=== PATIENT | female | born 1985 | race Caucasian/White ===

== ENCOUNTER 2018-01-20 13:59 | Inpatient (IN) | payer SELFPAY ==
[~2018-01-20] VITALS: Ht 160 cm; Wt 59.2 kg
[2018-01-20] MEDS ORDERED: DEXT 5%/LR + PITOCIN 20UNITS/L 1,000 ML IV SCH ×2 (15:35→15:42)
[2018-01-20] MEDS ORDERED: IBUPROFEN 400MG TABLET PO PRN (15:45)
[2018-01-20] MEDS ORDERED: RHO(D) IMMUNE GLOBULIN 300 MCG/SYR IM PRN (15:45)
[2018-01-20] MEDS: IBUPROFEN 800MG TABLET PO PRN ×2 (16:00→22:02)
[2018-01-20 16:55] LABS: CLARITY URINE CLEAR (CLEAR); COLOR URINE YELLOW (YELLOW); KETONES URINE NEGATIVE (NEGATIVE); LEUKOCYTE ESTERASE URINE NEGATIVE (NEGATIVE); NITRITE URINE NEGATIVE (NEGATIVE); OCCULT BLOOD URINE TRACE (NEGATIVE); PROTEIN URINE NEGATIVE (NEGATIVE); SPECIFIC GRAVITY URINE 1.021 (1.005-1.030)
[2018-01-20 16:59] LABS: PARTIAL THROMBOPLASTIN TIME 28.4 sec (23.4-31.0); PROTHROMBIN TIME 10.1 sec (9.4-11.6)
[2018-01-20 17:00] VITALS: BP 109/65
[2018-01-20 17:05] LABS: HEMATOCRIT. 24.4 % (36.0-48.0); HEMOGLOBIN. 7.7 g/dL (12.0-16.0); MEAN CORPUSCULAR HEMOGLOBIN 25.3 pg (28.0-32.0); MEAN CORPUSCULAR VOLUME 80.4 fL (81.0-99.0); MEAN PLATELET VOLUME 7.9 fl (7.4-10.4); PLATELET 206 x1000/uL (130-400); RED BLOOD CELL COUNT 3.03 mill/uL (4.2-5.4)
[2018-01-20 17:07] LABS: *BARBITURATES SCREEN URINE NEGATIVE (NEGATIVE); *BENZODIAZEPINES SCREEN URINE NEGATIVE (NEGATIVE); *COCAINE SCREEN URINE NEGATIVE (NEGATIVE); CANNABINOID URINE SCREEN NEGATIVE (NEGATIVE); METHADONE URINE SCREEN NEGATIVE (NEGATIVE); OPIATES URINE SCREEN NEGATIVE (NEGATIVE); PHENCYCLIDINE URINE SCREEN NEGATIVE (NEGATIVE)
[2018-01-20 17:12] LABS: *AMPHETAMINES SCREEN URINE PRESUMTIVE POSITIVE (NEGATIVE)
[2018-01-20 17:27] LABS: HEPATITIS B SURFACE ANTIGEN NEGATIVE; RUBELLA IGG 25.5 IU/mL (4.99-10)
[2018-01-20 17:30] VITALS: BP 105/46
[2018-01-20 18:21] LABS: NUCLEATED RED BLOOD CELLS 1 /100 WBC; PLATELET ESTIMATE NORMAL
[2018-01-20 22:00] VITALS: BP 95/50
[2018-01-21 05:40] VITALS: BP 114/65
[2018-01-21 07:14] LABS: BASOPHILS % 0.3 % (0.0-2.0); EOSINOPHILS % 0.9 % (0.0-5.0); HEMATOCRIT. 21.1 % (36.0-48.0); LYMPHOCYTES % 18.6 % (20.0-50.0); MEAN CORPUSCULAR VOLUME 79.8 fL (81.0-99.0); MEAN PLATELET VOLUME 8.1 fl (7.4-10.4); NEUTROPHILS % 72.2 % (40.0-76.0); PLATELET 191 x1000/uL (130-400); RED BLOOD CELL COUNT 2.65 mill/uL (4.2-5.4); RED CELL DISTRIBUTION WIDTH 17.3 % (11.6-14.6)
[2018-01-21 07:30] VITALS: BP 121/78
[2018-01-21 07:48] LABS: HEMOGLOBIN. 6.6 g/dL (12.0-16.0)
[2018-01-21] MEDS: IBUPROFEN 800MG TABLET PO PRN ×2 (08:19→19:36)
[2018-01-21 17:29] VITALS: BP 115/64
[2018-01-21 21:45] VITALS: BP 120/75
[2018-01-22 05:50] VITALS: BP 100/54
[2018-01-22 08:59] VITALS: BP 118/84
[2018-01-22] MEDS ORDERED: TETANUS, DIPHTHERIA, PERTUSSIS VAC/PF 0.5ML (>7YR OLD) IM ONE (10:00)
[2018-01-22] MEDS: IBUPROFEN 800MG TABLET PO PRN (10:58)
[2018-01-22 15:45] VITALS: BP 123/79
== END 2018-01-22 17:33 | disposition home or self-care (01) | DRG 560 ==
LOC: ER 14:07 → L&D 14:10 → 7EST PP/OB 17:39
PROVIDERS: ADMIT Obstetrics & Gynecology; ATTEND Obstetrics & Gynecology
PROC: 10E0XZZ Delivery of Products of Conception, External Approach (ICD-10-PCS; principal; 2018-01-20 14:25)
DX: O99.02 Anemia complicating childbirth (principal); D62 Acute posthemorrhagic anemia; O77.0 Labor and delivery complicated by meconium in amniotic fluid; F99 Mental disorder, not otherwise specified; O99.344 Other mental disorders complicating childbirth; Z3A.38 38 weeks gestation of pregnancy; Z37.0 Single live birth
CPT/HCPCS: 36415; 80305; 80307; 81003; 85025; 85610; 85730; 86592; 86703; 86762; 86850; 86900; 87340; 90715; 96374; 96376; 99285; J2590

== ENCOUNTER 2022-02-06 23:16 | Emergency (ER) | payer MEDICAID ==
[~2022-02-06] VITALS: Ht 162.6 cm; Wt 70.0 kg
[2022-02-07] MEDS ORDERED: LORAZEPAM 0.5MG TABLET PO ONE ×3 (00:30→15:45)
[2022-02-07 01:27] LABS: CHLORIDE 106 mEq/L (98-107)
[2022-02-07 01:29] LABS: BASOPHILS % 0.6 % (0.0-2.0); EOSINOPHILS % 0.1 % (0.0-5.0); HCG SCREEN NEGATIVE; HEMATOCRIT. 41.8 % (36.0-48.0); HEMOGLOBIN. 13.7 g/dL (12.0-16.0); LYMPHOCYTES % 17.5 % (20.0-50.0); MEAN CORPUSCULAR HEMOGLOBIN 28.9 pg (28.0-32.0); MEAN CORPUSCULAR VOLUME 88.3 fL (81.0-99.0); MEAN PLATELET VOLUME 6.9 fl (7.4-10.4); MONOCYTES % 7.2 % (2.0-8.0); NEUTROPHILS % 74.6 % (40.0-76.0); PLATELET 325 x1000/uL (130-400); RED BLOOD CELL COUNT 4.73 mill/uL (4.2-5.4)
[2022-02-07 01:35] LABS: ETHANOL BLOOD < 10 mg/dL
[2022-02-07 05:54] LABS: CLARITY URINE CLEAR (CLEAR); COLOR URINE YELLOW (YELLOW); KETONES URINE TRACE (NEGATIVE); LEUKOCYTE ESTERASE URINE NEGATIVE (NEGATIVE); NITRITE URINE NEGATIVE (NEGATIVE); OCCULT BLOOD URINE NEGATIVE (NEGATIVE); PH URINE 5.5 (4.5-8.0); PROTEIN URINE TRACE (NEGATIVE); SPECIFIC GRAVITY URINE 1.028 (1.005-1.030)
[2022-02-07 06:10] LABS: *AMPHETAMINES SCREEN URINE NEGATIVE (NEGATIVE); *BARBITURATES SCREEN URINE NEGATIVE (NEGATIVE); *BENZODIAZEPINES SCREEN URINE NEGATIVE (NEGATIVE); *COCAINE SCREEN URINE NEGATIVE (NEGATIVE); CANNABINOID URINE SCREEN NEGATIVE (NEGATIVE); METHADONE URINE SCREEN NEGATIVE (NEGATIVE); OPIATES URINE SCREEN NEGATIVE (NEGATIVE); PHENCYCLIDINE URINE SCREEN NEGATIVE (NEGATIVE)
[2022-02-07] MEDS ORDERED: NICOTINE 14MG PATCH TD NR (16:00)
[2022-02-07] MEDS: BUSPIRONE HCL 10MG TABLET PO SCH (21:35)
[2022-02-07] MEDS: RISPERIDONE 1MG TABLET PO SCH (21:36)
[2022-02-07] MEDS ORDERED: LORAZEPAM 1MG TABLET PO ONE (22:30)
[2022-02-07] MEDS ORDERED: METFORMIN HCL 500MG TABLET PO STA (23:10)
[2022-02-08] MEDS ORDERED: METFORMIN HCL 500MG TABLET PO SCH (09:00)
[2022-02-08] MEDS: RISPERIDONE 1MG TABLET PO SCH (09:00)
[2022-02-08] MEDS: BUSPIRONE HCL 10MG TABLET PO SCH (10:38)
[2022-02-08 13:49] VITALS: BP 120/72
== END 2022-02-08 14:50 | disposition home or self-care (01) ==
LOC: ER 23:16
DX: F32.9 Major depressive disorder, single episode, unspecified (principal); F23 Brief psychotic disorder; Z20.822 Contact with and (suspected) exposure to COVID-19
CPT/HCPCS: 80053; 80305; 80307; 80320; 80329; 81001; 84703; 85025; 99285; C9803; U0003; U0005; G0480

== ENCOUNTER 2022-02-21 18:39 | Emergency (ER) | payer MEDICAID ==
[~2022-02-21] VITALS: Ht 160 cm; Wt 90.0 kg
[2022-02-21 20:37] LABS: BASOPHILS % 0.5 % (0.0-2.0); EOSINOPHILS % 0.2 % (0.0-5.0); HEMATOCRIT. 41.8 % (36.0-48.0); HEMOGLOBIN. 13.8 g/dL (12.0-16.0); LYMPHOCYTES % 21.5 % (20.0-50.0); MEAN CORPUSCULAR HEMOGLOBIN 29.1 pg (28.0-32.0); MEAN CORPUSCULAR VOLUME 87.9 fL (81.0-99.0); MONOCYTES % 8.1 % (2.0-8.0); NEUTROPHILS % 69.7 % (40.0-76.0); PLATELET 236 x1000/uL (130-400); RED BLOOD CELL COUNT 4.75 mill/uL (4.2-5.4); RED CELL DISTRIBUTION WIDTH 13.3 % (11.6-14.6)
[2022-02-21 20:56] LABS: CHLORIDE 107 mEq/L (98-107)
[2022-02-21 21:02] LABS: HCG SCREEN NEGATIVE
[2022-02-21 21:13] LABS: ETHANOL BLOOD < 10 mg/dL
[2022-02-21 21:46] LABS: CLARITY URINE CLEAR (CLEAR); COLOR URINE YELLOW (YELLOW); KETONES URINE TRACE (NEGATIVE); LEUKOCYTE ESTERASE URINE NEGATIVE (NEGATIVE); NITRITE URINE NEGATIVE (NEGATIVE); OCCULT BLOOD URINE NEGATIVE (NEGATIVE); PROTEIN URINE NEGATIVE (NEGATIVE); SPECIFIC GRAVITY URINE 1.025 (1.005-1.030)
[2022-02-21] MEDS ORDERED: SODIUM CHLORIDE 0.9% 1,000 ML IV ONE (22:15)
[2022-02-21] MEDS ORDERED: DIPHENHYDRAMINE 50MG CAPSULE PO ONE (22:15)
[2022-02-21 22:50] LABS: *AMPHETAMINES SCREEN URINE NEGATIVE (NEGATIVE); *BARBITURATES SCREEN URINE NEGATIVE (NEGATIVE); *BENZODIAZEPINES SCREEN URINE NEGATIVE (NEGATIVE); *COCAINE SCREEN URINE NEGATIVE (NEGATIVE); CANNABINOID URINE SCREEN NEGATIVE (NEGATIVE); METHADONE URINE SCREEN NEGATIVE (NEGATIVE); OPIATES URINE SCREEN NEGATIVE (NEGATIVE); PHENCYCLIDINE URINE SCREEN NEGATIVE (NEGATIVE)
[2022-02-22] VITALS: BP 118/80
== END 2022-02-22 00:04 | disposition home or self-care (01) ==
LOC: ER 18:39
DX: R06.02 Shortness of breath (principal); F32.9 Major depressive disorder, single episode, unspecified; E11.9 Type 2 diabetes mellitus without complications; F20.9 Schizophrenia, unspecified; E03.9 Hypothyroidism, unspecified
CPT/HCPCS: 36415; 71045; 80053; 80305; 80307; 80320; 80329; 81003; 81025; 82962; 83605; 83880; 84443; 84484; 84703; 85025; 93005; 99285; J7030; Q0163; G0480

== ENCOUNTER 2022-02-25 20:06 | Emergency (ER) | payer MEDICAID ==
[~2022-02-25] VITALS: Ht 160 cm; Wt 86.0 kg
[2022-02-25 20:35] VITALS: BP 138/79
[2022-02-25] MEDS ORDERED: IBUPROFEN 600MG TABLET PO ONE (23:00)
[2022-02-25] MEDS ORDERED: DIPH25CA83 MT ×3 (23:42→23:44)
[2022-02-25] MEDS ORDERED: DIPHENHYDRAMINE 25MG CAPSULE PO ONE (23:45)
== END 2022-02-25 23:56 | disposition home or self-care (01) ==
LOC: ER 20:06
DX: M54.50 Low back pain, unspecified (principal); G89.29 Other chronic pain; G47.00 Insomnia, unspecified; F32.9 Major depressive disorder, single episode, unspecified; E11.9 Type 2 diabetes mellitus without complications; F20.9 Schizophrenia, unspecified
CPT/HCPCS: 81025; 99282; Q0163

== ENCOUNTER 2023-01-29 16:31 | Emergency (ER) | payer MEDICAID ==
[~2023-01-29] VITALS: Ht 162.6 cm; Wt 80.0 kg
[~2023-01-29 16:31] MED LIST: DIPH25CA83 MT
[2023-01-29 16:49] VITALS: TEMP 98.9; O2SAT 100
[2023-01-29 22:45] VITALS: BP 155/112; PULSE 121; RESP 18
[2023-01-29] MEDS ORDERED: IBUPROFEN 400MG TABLET PO ONE (22:45)
[2023-01-29 22:59] LABS: BASOPHILS % 0.7 % (0.0-2.0); EOSINOPHILS % 0.6 % (0.0-5.0); HEMATOCRIT. 41.6 % (36.0-48.0); HEMOGLOBIN. 14.2 g/dL (12.0-16.0); LYMPHOCYTES % 28.9 % (20.0-50.0); MEAN CORPUSCULAR HEMOGLOBIN 30.1 pg (28.0-32.0); MEAN CORPUSCULAR HGB CONC 34.1 g/dL (31.0-37.0); MEAN CORPUSCULAR VOLUME 88.3 fL (81.0-99.0); MEAN PLATELET VOLUME 7.6 fl (7.4-10.4); MONOCYTES % 8.7 % (2.0-8.0); NEUTROPHILS % 61.1 % (40.0-76.0); PLATELET 263 x1000/uL (130-400); RED BLOOD CELL COUNT 4.71 mill/uL (4.2-5.4); RED CELL DISTRIBUTION WIDTH 13.9 % (11.6-14.6); WHITE BLOOD COUNT 8.3 x1000/uL (4.5-11.0)
[2023-01-29 23:08] LABS: CHLORIDE 110 mEq/L (98-107); INDEX HEMOLYSI 1 (1-3); INDEX ICTERIC 1 (1-4); INDEX LIPEMIC 1 (1-3); POTASSIUM 3.5 mEq/L (3.5-5.1); SODIUM 141 mEq/L (136-145)
[2023-01-29 23:15] LABS: ALANINE AMINOTRANSFERASE 19 IU/L (13-61); ALBUMIN 3.7 g/dL (3.4-5.0); ASPARTATE AMINOTRANSFERASE 11 IU/L (15-37); BILIRUBIN TOTAL 0.1 mg/dL (0.1-1.0); CALCIUM 9.5 mg/dL (8.5-10.1); CARBON DIOXIDE 24 mEq/L (21-32); CREATININE 0.8 mg/dL (0.6-1.3); ETHANOL BLOOD < 10 mg/dL (-10); GLUCOSE 116 mg/dL (70-105); PROTEIN TOTAL 8.2 g/dL (6.0-8.3); UREA NITROGEN BLOOD 6 mg/dL (7-21)
[2023-01-30 00:49] LABS: *AMPHETAMINES SCREEN URINE NEGATIVE (NEGATIVE); *BARBITURATES SCREEN URINE NEGATIVE (NEGATIVE); *BENZODIAZEPINES SCREEN URINE NEGATIVE (NEGATIVE); *COCAINE SCREEN URINE NEGATIVE (NEGATIVE); CANNABINOID URINE SCREEN NEGATIVE (NEGATIVE); ECSTASY MDMA SCREEN URINE NEGATIVE (NEGATIVE); METHADONE URINE SCREEN NEGATIVE (NEGATIVE); OPIATES URINE SCREEN NEGATIVE (NEGATIVE); PHENCYCLIDINE URINE SCREEN NEGATIVE (NEGATIVE)
== END 2023-01-30 02:40 | disposition home or self-care (01) ==
LOC: ER 16:31
DX: R56.9 Unspecified convulsions (principal); R51.9 Headache, unspecified; F41.9 Anxiety disorder, unspecified; F32.9 Major depressive disorder, single episode, unspecified; F20.9 Schizophrenia, unspecified
CPT/HCPCS: 36415; 80053; 80305; 80320; 85025; 93005; 99284; G0480

== ENCOUNTER 2024-03-17 18:01 | Emergency (ER) | payer MEDICAID ==
[~2024-03-17] VITALS: Ht 160 cm; Wt 86.0 kg
[2024-03-17 18:09] VITALS: TEMP 98.5; O2SAT 100
[2024-03-17] MEDS ORDERED: KETOROLAC 30MG/ML VIAL IM STA (19:31)
[2024-03-17 19:54] LABS: BASOPHILS % 0.6 % (0.0-2.0); EOSINOPHILS % 0.9 % (0.0-5.0); HEMATOCRIT. 40.5 % (36.0-48.0); HEMOGLOBIN. 13.3 g/dL (12.0-16.0); LYMPHOCYTES % 23.1 % (20.0-50.0); MEAN CORPUSCULAR HEMOGLOBIN 30.5 pg (28.0-32.0); MEAN CORPUSCULAR VOLUME 92.6 fL (81.0-99.0); MEAN PLATELET VOLUME 7.2 fl (7.4-10.4); MONOCYTES % 10.6 % (2.0-8.0); NEUTROPHILS % 64.8 % (40.0-76.0); PLATELET 302 x1000/uL (130-400); RED BLOOD CELL COUNT 4.37 mill/uL (4.2-5.4); RED CELL DISTRIBUTION WIDTH 13.8 % (11.6-14.6); WHITE BLOOD COUNT 12.6 x1000/uL (4.5-11.0)
[2024-03-17 19:59] LABS: CHLORIDE 106 mEq/L (98-107); POTASSIUM 3.5 mEq/L (3.5-5.1)
[2024-03-17 20:00] LABS: CARBON DIOXIDE 25 mEq/L (21-32); SODIUM 142 mEq/L (136-145)
[2024-03-17 20:01] LABS: CALCIUM 10.3 mg/dL (8.7-10.4)
[2024-03-17 20:05] LABS: CREATININE 1.1 mg/dL (0.6-1.0)
[2024-03-17 20:06] LABS: GLUCOSE 109 mg/dL (70-105); UREA NITROGEN BLOOD 6 mg/dL (9-23)
[2024-03-17 20:10] LABS: ETHANOL BLOOD < 10 mg/dL (<10)
[2024-03-17 21:29] LABS: CLARITY URINE CLEAR (CLEAR); COLOR URINE YELLOW (YELLOW); GLUCOSE URINE NEGATIVE (NEGATIVE); KETONES URINE NEGATIVE (NEGATIVE); LEUKOCYTE ESTERASE URINE NEGATIVE (NEGATIVE); NITRITE URINE NEGATIVE (NEGATIVE); OCCULT BLOOD URINE NEGATIVE (NEGATIVE); PH URINE 5.5 (4.5-8.0); PROTEIN URINE NEGATIVE (NEGATIVE); SPECIFIC GRAVITY URINE 1.006 (1.005-1.030); UROBILINOGEN URINE 0.2 E.U./dL (0.2-1.0)
[2024-03-17] MEDS: KETOROLAC 30MG/ML VIAL IM NR (21:32)
[2024-03-17] MEDS ORDERED: NAPR-681 PO (21:34)
[2024-03-17 21:50] VITALS: BP 136/96; PULSE 113; RESP 20; O2SAT 95
== END 2024-03-17 21:51 | disposition home or self-care (01) ==
LOC: ER 18:01
DX: M54.50 Low back pain, unspecified (principal); R25.1 Tremor, unspecified; F19.90 Other psychoactive substance use, unspecified, uncomplicated; F41.9 Anxiety disorder, unspecified; F20.9 Schizophrenia, unspecified
CPT/HCPCS: 80048; 81003; 81025; 80320; 85025; 36415; 96372; 99283; J1885; Z7610; G0480

== ENCOUNTER 2024-03-18 09:13 | Emergency (ER) | payer MEDICAID ==
[~2024-03-18] VITALS: Ht 160 cm; Wt 99.7 kg
[~2024-03-18 09:13] MED LIST changes: +NAPR-681 PO
[2024-03-18 09:21] VITALS: O2SAT 97
[2024-03-18 09:48] LABS: BASOPHILS % 0.4 % (0.0-2.0); EOSINOPHILS % 1.1 % (0.0-5.0); HEMATOCRIT. 40.5 % (36.0-48.0); HEMOGLOBIN. 13.5 g/dL (12.0-16.0); LYMPHOCYTES % 16.8 % (20.0-50.0); MEAN CORPUSCULAR HEMOGLOBIN 30.9 pg (28.0-32.0); MEAN CORPUSCULAR HGB CONC 33.4 g/dL (31.0-37.0); MEAN CORPUSCULAR VOLUME 92.5 fL (81.0-99.0); MEAN PLATELET VOLUME 7.2 fl (7.4-10.4); NEUTROPHILS % 72.7 % (40.0-76.0); PLATELET 297 x1000/uL (130-400); RED BLOOD CELL COUNT 4.38 mill/uL (4.2-5.4); RED CELL DISTRIBUTION WIDTH 13.9 % (11.6-14.6); WHITE BLOOD COUNT 10.5 x1000/uL (4.5-11.0)
[2024-03-18 09:49] LABS: CLARITY URINE CLOUDY (CLEAR); COLOR URINE YELLOW (YELLOW); GLUCOSE URINE NEGATIVE (NEGATIVE); KETONES URINE TRACE (NEGATIVE); LEUKOCYTE ESTERASE URINE NEGATIVE (NEGATIVE); NITRITE URINE NEGATIVE (NEGATIVE); OCCULT BLOOD URINE NEGATIVE (NEGATIVE); PROTEIN URINE TRACE (NEGATIVE); SPECIFIC GRAVITY URINE 1.028 (1.005-1.030)
[2024-03-18 10:01] LABS: CARBON DIOXIDE 26 mEq/L (21-32); CHLORIDE 109 mEq/L (98-107); POTASSIUM 3.7 mEq/L (3.5-5.1); SODIUM 140 mEq/L (136-145)
[2024-03-18 10:02] LABS: CALCIUM 9.8 mg/dL (8.7-10.4)
[2024-03-18 10:07] LABS: GLUCOSE 112 mg/dL (70-105); UREA NITROGEN BLOOD 7 mg/dL (9-23)
[2024-03-18 10:12] LABS: *AMPHETAMINES SCREEN URINE NEGATIVE (NEGATIVE); *BARBITURATES SCREEN URINE NEGATIVE (NEGATIVE); *BENZODIAZEPINES SCREEN URINE NEGATIVE (NEGATIVE); *COCAINE SCREEN URINE NEGATIVE (NEGATIVE)
[2024-03-18 10:13] LABS: CANNABINOID URINE SCREEN NEGATIVE (NEGATIVE); ECSTASY MDMA SCREEN URINE NEGATIVE (NEGATIVE); METHADONE URINE SCREEN NEGATIVE (NEGATIVE); OPIATES URINE SCREEN NEGATIVE (NEGATIVE); PHENCYCLIDINE URINE SCREEN NEGATIVE (NEGATIVE)
[2024-03-18 10:13] LABS: HCG SCREEN NEGATIVE
[2024-03-18 10:16] LABS: BACTERIA URINE TRACE; RBC URINE 0-2 /hpf (0-2); SQUAMOUS EPITHELIAL CELL URINE 2+ /lpf (RARE/1+); YEAST URINE NONE SEEN
[2024-03-18 10:17] LABS: WHITE BLOOD CELL CASTS URINE 0-5 /lpf
[2024-03-18 10:42] LABS: ETHANOL BLOOD < 10 mg/dL (<10)
[2024-03-18] MEDS: BENZTROPINE MESYLATE 1MG TABLET PO ONE (11:30)
[2024-03-18] MEDS: IBUPROFEN 600MG TABLET PO ONE (15:15)
[2024-03-18 21:01] VITALS: BP 124/82; PULSE 90; RESP 18; TEMP 36.83628; O2SAT 100
== END 2024-03-18 21:52 ==
LOC: ER 09:13
DX: R46.2 Strange and inexplicable behavior (principal); Z86.59 Personal history of other mental and behavioral disorders; Z20.822 Contact with and (suspected) exposure to COVID-19
CPT/HCPCS: 36415; 72100; 80048; 80305; 80320; 81003; 84703; 85025; 87426; 99284; 99285; G0480